=== PATIENT | female | born 1950 | race Caucasian/White ===

== ENCOUNTER → 2018-02-08 | Outpatient (CLI) | payer OTHER ==
[~2018-02-08] VITALS: Ht 139.7 cm; Wt 53.0 kg
[~2018-02-08] MED LIST: AMBIEN5 MG PO; ASPIRIN EC325 MG PO; BISACODYL5 MG PO; CELECOXIB200 MG PO; DAILY MULTIPLE1 EACH PO; DILAUDID2 MG PO; DURAGESIC25 MCG TD; EFFEXOR50 MG PO; FENTANYL1 EAC1 TD; FLEXERIL10 MG PO; GABAPENTIN100 MG PO; LEVOTHYROXINE25 MCG PO; LOPRESSOR25 MG PO; METOPROLOL TART25 MG PO; METOPROLOL TART50 MG PO; MILK OF MAGNESI10 ML PO; MORPHINE SULFAT30 M2 PO; OMEPRAZOLE40 M1 PO; SENOKOT,SENN1 TABLET PO; WELLBUTRIN XL150 MG PO
[2018-02-08 12:06] VITALS: BP 142/77
== END | disposition home or self-care (01) ==
LOC: IVINF 11:30
DX: M81.0 Age-related osteoporosis without current pathological fracture (principal)
CPT/HCPCS: 96365; J3489

== ENCOUNTER → 2018-05-31 | Outpatient (CLI) | payer OTHER | END | disposition home or self-care (01) | LOC: NUC 08:53 | DX: T84.038A Mechanical loosening of other internal prosthetic joint, initial encounter (principal); Z96.612 Presence of left artificial shoulder joint; M41.86 Other forms of scoliosis, lumbar region; M47.892 Other spondylosis, cervical region; M19.011 Primary osteoarthritis, right shoulder; M19.041 Primary osteoarthritis, right hand; M47.895 Other spondylosis, thoracolumbar region; M19.072 Primary osteoarthritis, left ankle and foot; M19.071 Primary osteoarthritis, right ankle and foot | CPT/HCPCS: 78315; A9503 ==